=== PATIENT | male | born 1980 | race Caucasian/White ===

== ENCOUNTER 2021-10-01 10:51 | Inpatient (IN) | payer MEDICAID, SELFPAY ==
[2021-10-01 10:54] VITALS: BMI 24.4
[2021-10-01 10:56] VITALS: BP 127/81; PULSE 87; RESP 20; TEMP 36.4; O2SAT 96
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
[2021-10-01 14:00] VITALS: BP 130/89; PULSE 87; RESP 17; TEMP 36.7; O2SAT 98
[2021-10-01] MEDS: OLANZapine 5 mg ODT PO (15:52)
[2021-10-01 19:56] VITALS: BP 127/85; PULSE 82; RESP 16; O2SAT 97
[2021-10-02] MEDS: hyDROXYzine 25 mg Capsule 50 MG PO (03:49)
--- NOTE | 2021-10-02 03:57 | PC.NURSE ---
pt came to nurses desk requesting med for anxiety. when asked what was amping him up, pt stated being here . Vistaril 50mg po given.
[2021-10-02 06:00] VITALS: BP 129/91; PULSE 92; RESP 20; TEMP 36.6; O2SAT 98
[2021-10-02] MEDS: multivitamin therapeutic Tablet 1 TAB PO (08:27)
[2021-10-02] MEDS: thiamine 100 mg Tablet PO (08:27)
[2021-10-02] MEDS: haloperidol 5 mg Tablet PO ×2 (08:27→23:11)
[2021-10-02] MEDS: folic acid 1 mg Tablet PO (08:27)
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
[2021-10-02] MEDS: nicotine 21 mg Patch 1 PATCH TRANSDERMA (11:22)
[2021-10-02 14:00] VITALS: BP 129/86; PULSE 92; RESP 12; TEMP 36.7; O2SAT 97
[2021-10-02] MEDS: lithium carbonate 300 mg Capsule PO ×2 (14:02→18:01)
[2021-10-02] MEDS: ibuprofen 600 mg Tablet PO (14:32)
[2021-10-02 20:10] VITALS: BP 147/94; PULSE 101; RESP 16; O2SAT 97
[2021-10-02] MEDS: quetiapine 25 mg Tablet 50 MG PO ×2 (22:06→23:11)
--- NOTE | 2021-10-02 22:21 | PC.NURSE ---
NEW ORDER PT EXPRESSES TO THIS RN THAT HE CAN NOT SLEEP AND CAN NOT TAKE TRAZODONE OR ANY ANTIDEPRESSANTS DUE TO HAVING AN INCREASED HR AND FEELING FUNNY WHEN HE TAKES THEM. PT STATES HE USE TO TAKE AMBIEN FOR 9 YEARS AND THAT HELPED HIM SLEEP MORE THAN ANYTHING. THIS RN NOTIFIED DR. DR DARLING GAVE NEW ORDERS TO START SEROQUEL 50 MG PO AT HS PRN MAY REPEAT IF INEFFECTIVE. ORDERS PLACED IN [facility]. PT EDUCATION GIVEN ON SEROQUEL. PT VERBALIZES UNDERSTANDING. ALL QUESTIONS ANSWERED AND SUPPORT VOICED.
--- NOTE | 2021-10-02 23:15 | PC.NURSE ---
PRN MEDICATION PT REQUESTED PRN MEDICATION TO HELP HIM SLEEP. 50 MG OF SEROQUEL GIVEN ORDERED. PT CAME UP ABOUT 45 MINUTES LATER, STILL RESTLESS AND MORE ANXIOUS DUE TO NOT BEING ABLE TO SLEEP AND THE FIRST DOSE OF SEROQUEL NOT WORKING. PT WAS GIVEN AN ADDITIONAL DOSE OF 50 MG OF SEROQUEL ORDERED AND HALDOL 50 MG PO FOR INCREASED ANXIETY AND RESTLESSNESS. EDUCATED PT ON RELAXATION TECHNIQUES AND BREATHING TECHNIQUES TO ASSIST WITH REDUCING ANXIETY AND CALMING HIS MIND TO HELP INDUCE SLEEP. PT VERBALIZED UNDERSTANDING THEN WENT TO BED TO LAY DOWN AGAIN. INFORMED PT TO LET STAFF KNOW IF THE MEDICATION DOES NOT WORK. PT STATED HE WILL. ALL QUESTIONS ANSWERED AND SUPPORT VOICED.
[2021-10-03 05:42] VITALS: BP 109/74; PULSE 71; RESP 17; TEMP 36.6; O2SAT 98
[2021-10-03] MEDS: multivitamin therapeutic Tablet 1 TAB PO (08:21)
[2021-10-03] MEDS: thiamine 100 mg Tablet PO (08:21)
[2021-10-03] MEDS: folic acid 1 mg Tablet PO (08:22)
[2021-10-03] MEDS: lithium carbonate 300 mg Capsule PO ×2 (08:22→17:05)
[2021-10-03] MEDS: ibuprofen 600 mg Tablet PO (10:26)
[2021-10-03] MEDS: hyDROXYzine 25 mg Capsule 50 MG PO (13:39)
[2021-10-03 13:49] VITALS: BP 109/74; PULSE 71; RESP 17; TEMP 36.6; O2SAT 98
[2021-10-03] MEDS: nicotine 21 mg Patch 1 PATCH TRANSDERMA (14:44)
--- NOTE | 2021-10-03 19:00 | W.PM.NPUPNS ---
Subjective NPU Subjective: Patient is a 40y.o. white male with bipolar disorder I, and alcohol abuse. who had reported increased manic symptoms in the absence of his medications with suicidal ideation and worsening mood. He reports no side effects from the initiation of lithium and reports that he had been on higher dose of seroquel in the past. He reports that he continued to feel his thoughts racing and described having high energy but some sleep continuity disruption. He reports no feelings of hopelessnes. Reports continued history of cycling of his mood. Mental Status Exam MSE Comments: This is a casually dressed male, who appeared his stated age. His speech remained fast with increase push, Thought process was circumstantial. There was no evidence of flight of ideas. Thought content showed some evidence of overvalued ideas. There was not clear evidence of delusional thinking. Attention appeared fair. Insight was limited. Judgment is poor. Alert and oriented to person, place and time.? Mood was described as better , His affect remained intense with continued lability. Vitals/I&O/Wt Last Vital Signs Temp 98 F 10/03/21 13:49 Pulse 71 10/03/21 13:49 Resp 17 10/03/21 13:49 BP 109/74 10/03/21 13:49 Pulse Ox 98 10/03/21 13:49 A&P Assessment and plan (1) Bipolar I disorder with mixed features: Status: Acute (2) Alcohol abuse: Status: Acute Plan Plan This is a 40-year-old, , white male, with bipolar disorder, currently endorsing mixed symptoms, suggested for depression and isela, with a history of good success with [place]. 1. Patient will remain on [place] today 300mg bid 2. Increase seroquel to 200mg at night today 3. Cncourage individual/milieu/group therapy. Involuntary Hold Information 96 Hour Hold: 96 Hour Involuntary Admission: No Attestations NPU Medical Necessity Statement*: Patient requires continued hospitalization likely for 5-8 days to prevent further decompensation.? Coding Level of Care Code Established Pt Acute Business Continuity Planning Director for Maulik Pruett Patient Type Established History Problem Focused Exam Problem Focused Medical Decision Making Straight Forward Diagnoses Bipolar I disorder with mixed features F31.9 Alcohol abuse F10.10
[2021-10-03] MEDS: quetiapine 100 mg Tablet 200 MG PO (19:42)
[2021-10-03 19:54] VITALS: BP 124/86; PULSE 114; RESP 18; TEMP 36.7; O2SAT 96
[2021-10-04 06:00] VITALS: BP 125/91; PULSE 102; RESP 20; TEMP 36.5; O2SAT 95
[2021-10-04] MEDS: thiamine 100 mg Tablet PO (08:21)
[2021-10-04] MEDS: multivitamin therapeutic Tablet 1 TAB PO (08:22)
[2021-10-04] MEDS: acetaminophen 325 mg Tablet 650 MG PO (08:22)
[2021-10-04] MEDS: lithium carbonate 300 mg Capsule PO ×2 (08:22→17:26)
[2021-10-04] MEDS: folic acid 1 mg Tablet PO (08:22)
[2021-10-04] MEDS: nicotine 21 mg Patch 1 PATCH TRANSDERMA (08:47)
[2021-10-04 14:00] VITALS: BP 158/88; PULSE 98; RESP 18; O2SAT 96
--- NOTE | 2021-10-04 14:11 | P.NPUPN_ITS ---
Subjective NPU Subjective: Patient is a 40y.o. white male with bipolar disorder I, and alcohol abuse. who had reported increased manic symptoms in the absence of his medications with suicidal ideation and worsening mood.? He reports that he has been feeling less irritable and reports decrease in racing thoughts with some improvement in mood and reports of improved sleep with combination of seroquel. he reports that he feels motivated to return home. He reports that he has been feeling less aggressive. He reports depressed mood has been better. Mental Status Exam MSE Comments: This is a casually dressed male, who appeared his stated age. His speech was signficantly slower. Thought process was circumstantial. There was no evidence of flight of ideas. Thought content showed no clear evidence of delusional thinking or overvalued ideas. No evidence of flight of ideas or tangentiality. Attention appeared fair. Insight was limited. Judgment is poor. Alert and oriented to person, place and time.? Mood was described as better , His affect appeared mood congruent today. Vitals/I&O/Wt Last Vital Signs Temp 98.7 F 10/04/21 19:58 Pulse 98 10/04/21 19:58 Resp 18 10/04/21 19:58 BP 125/82 10/04/21 19:58 Pulse Ox 97 10/04/21 19:58 A&P Assessment and plan (1) Bipolar I disorder with mixed features: Status: Acute (2) Alcohol abuse: Status: Acute Plan This is a 40-year-old, , white male, with bipolar disorder, currently endorsing mixed symptoms, suggested for depression and isela, with a history of good success wi th Stuart. 1. Patient will remain on? [place] today 300mg bid 2. Increase seroquel to 300mg at night today 3.? Incourage individual/milieu/group therapy. Involuntary Hold Information 96 Hour Hold: 96 Hour Involuntary Admission: No Attestations NPU Medical Necessity Statement*: Patient requires continued hospitalization likely for 1-2 days to prevent further decompensation.?Will check lithium level tommorow. Coding Level of Care Code Established Pt Acute Route Sales Delivery Driver for Maulik Pruett Patient Type Established History Problem Focused Exam Problem Focused Medical Decision Making Straight Forward Diagnoses Bipolar I disorder with mixed features F31.9 Alcohol abuse F10.10
[2021-10-04] MEDS: calcium carbonate 500 mg Chew Tablet 1000 MG PO (17:26)
[2021-10-04 19:58] VITALS: BP 125/82; PULSE 98; RESP 18; TEMP 37.1; O2SAT 97
[2021-10-04] MEDS: quetiapine 300 mg Tablet PO (20:51)
[2021-10-05 06:00] VITALS: BP 119/85; PULSE 75; RESP 18; TEMP 36.6; O2SAT 97
[2021-10-05] MEDS: lithium carbonate 300 mg Capsule PO (09:07)
[2021-10-05] MEDS: thiamine 100 mg Tablet PO (09:07)
[2021-10-05] MEDS: nicotine 21 mg Patch 1 PATCH TRANSDERMA (09:07)
[2021-10-05] MEDS: multivitamin therapeutic Tablet 1 TAB PO (09:07)
[2021-10-05] MEDS: folic acid 1 mg Tablet PO (09:08)
--- NOTE | 2021-10-05 14:11 | W.PM.NPUDCS ---
Diagnoses at Discharge Discharge Diagnosis (1) Bipolar I disorder with mixed features: Status: Acute (2) Alcohol abuse: Status: Acute Reason for Visit Reason for Visit: suicidal ideation Brief History: [address] [place] [address] History & Physical Report Signed Patient: Noam Amador MR#: [id number] : 1980 Age/Sex: 40 / M ADM Date: 10/01/21 Loc: NONDESTRUCTIVE TESTER? Room/Bed: 155-2 Encounter Date: 10/02/[address]: Vaibhav Silva MD Report Number: [id number] Providers/Chief Complaint Admitting Physicia n:?? Chapis Garcia ? Chief Complaint:?? suicidal ideation HPI NPU History of Present Illness Noam Amador is a 40 year old male diagnosed withbipolar disorder I in the past. He reports that two weeks ago he got and moved in with his new ; he owns a house but her house is in [place], which is more convenient, so he moved into her house. He reports that he brought his cats. He reports he quit his job and started a brand new job. He stated it is not an ?old man job? and he is turning 41 soon, and as he has not been physically active this new job has been more grueling and he is very sore right now. He endorses that his whole life has changed. He reports that his needs medication too and has her own issues and he thinks that she needs to be in therapy. He reports that his goal had been to move in by February and she got upset and said they needed to be together. So he finally said ok. He reports that he is used to a ?decompression period? where he would go to his house, not answer his phone, and turn on the TV and breathe. But his would want to go do ?this and that? every day, and would just fill up the weekends with things to do, when he would just like to have a weekend with nothing to do. He is also now a step dad to three children. He reports he has a hard time sleeping. So the transition has been difficult. Because of this he states that ?I broke.? He reports that when he is overwhelmed he ?blacks out? or is not ?taking in memories.? He reports that they were at a [employer] and he had one beer, but he was not drunk. Then it was all a blur and he was getting arrested. The report says that they had to talk him down and he was saying he wanted to kill himself, and a gun was involved. He reports that he pretty much woke up in the back of the gyroscopic instrument tester car, thinking ?who did I hurt,? but the gyroscopic instrument tester told him he didn?t hurt anyone. He at first reported that he does not get periods of depression, and that he always has the highs, in which he can be happy or irritable. He reports periods of not sleeping at all. He reports averaging one and a half to two hours of sleep a night over three weeks. He thinks the trigger was getting three weeks ago. But he did report that he gets really stressed and then will crash and have a period of not functioning. He reports that he disappears when he has ?a drop? and just isolates. And then he will just crash and have periods of what he described as ?micro-sleeping? where he will sleep off and on over a couple days. He reports that if he has several days of being awake he will hear music that is not there, or hear sounds like someone is outside when no one is there. He reports that his mood was more stable three months ago. He reports that he has problems with anxiety and has panic attacks, but they are not as frequent as they were years ago. He used to have them every day but now has them every few months. He reports that he had one recently when he was moving out of the house he had been in for years. He reports that he used to take Klonopin but just stopped taking it. He reports that he has tried CBT. PSYCHIATRIC HISTORY: He reports that he has had seven psychiatric hospitalizations, with the most recent being last year, at [facility]. He reports that he got the point where he ?broke again.? He denies being suicidal at that point. He denies self-injurious behavior. He denies being involuntarily hospitalized. He reports the first psychiatric hospitalization was at 18 years old. He reports that he went to [facility] for a long time, but that ?they don?t listen.? He reports his last psychiatric visit was several months ago.? ?He reports that he was taking [place], morning and night, and Ambien or something else to help with sleep. He reports that they tried Seroquel and it did not work. He reports that he had a sleep study and he did not have a circadian rhythm. He reports taking Zyprexa and something else and that did not help. He reports taking Lamictal but that it stopped working. He reports that he was on Depakote when he was a kid, and endorsed that they thought he had bipolar when he was younger. He reports that he was on Abilify and there were sexual side effects. He reports that he was on Risperdal and thinks there was some reason he could not take that. As far as he recalls, he denies Tegretol, Geodon, Latuda. He endorses that about six months ago, he was seeing a psychiatrist fairly regularly and would get [place] levels regularly. SUBSTANCE ABUSE HISTORY: He reports that he drinks alcohol occasionally, mostly only on the weekends. He denies smoking cigarettes but endorses vaping, and he denies any other drug use. He denies marijuana, opiates, cocaine, or any other illicit drug use. He denies ever being in a drug rehabilitation. He denies ever having a DUI. FAMILY HISTORY: He denies a family history of mental health issues. DEVELOPMENTAL AND PSYCHOSOCIAL HISTORY: He reports that he was born in [facility], [place] [facility]. He was 10 to 12 when he moved to [place], [place]. Then he moved to [place], back to [facility] and then here. He reports that he was raised by both parents until his parents split up when he was ?18 years old. He reports that he has one sibling, a younger brother. And he has three step- siblings. He reports that he hated school but he was good at it. He reports that did have some special eduction because he was not getting work done, but that when he applied himself he ?blew through it? and that he is actually a really smart person. He reports that he was diagnosed with ADHD but was not on medication, as they tried medication for about a week and he did not like it. He reports that he graduated high school and went to college at the [employer], which has an online program for [employer] and web design, which he completed, and he graduated with an Associates degree. He reports that he works at [employer] and just got this job back Saturday of last week, and wants to get out of here because of that. He reports that he has been twice, previously thirteen years and recently for two months. He reports that he got in 2019. He denies having biological children. He reports that he now lives with his new and her three kids. 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 He said he quit his old job, which he had for three and a half years, because they were working him nineteen days straight which was not good for his mental health. He reports that before that job he had a job for four years. LEGAL HISTORY: He endorses some legal trouble when he was around 19 years old, for drinking and fighting. He reports that he was in intermediate for over six months. MEDICAL HISTORY: He denies any medical concerns. He reports he had an appendectomy. He reports environmental allergies. He reports that Vicodin makes him itch, Trazodone makes him sick, and some other medications that he does not tolerate well. Allergies: vicodin, vraylar Hospital Course Hospital Course During the hospitalization, patient had routine laboratory studies which were within normal limits except for few outliers. Additionally there was a general medical evaluation which was also within normal limits and revealed no new acute processes. Discharge Summary: At the time of discharge, lethality was denied and psychosis was resolving. Mood and anxiety were well managed. Patient endorsed a plan to avoid all drugs of abuse and follow-up with the aftercare recommendations of the treatment team. Patient was evaluated and deemed to be absent credible lethality, and had achieved the maximum benefit from an inpatient hospitalization, so was discharged. Patient was discharged on [place] and seroquel without any complications. Involuntary Hold Information 96 Hour Hold: 96 Hour Involuntary Admission: No Mental Status Exam MSE Comments: This is a casually dressed male, who appeared his stated age. His speech was signficantly slower.? Thought process was linear and logical and goal directed. There was no evidence of flight of ideas. Thought content showed no clear evidence of delusional thinking or overvalued ideas.? No evidence of flight of ideas or tangentiality. ? ?Attention appeared fair. Insight was limited. Judgment is better. Alert and oriented to person, place and time.? Mood was described as better , His affect appeared mood congruent today. Discharge Data Vitals: Last Vital Signs Temp 98 F 10/05/21 15:07 Pulse 75 10/05/21 15:07 Resp 18 10/05/21 15:07 BP 119/85 10/05/21 15:07 Pulse Ox 97 10/05/21 15:07 Discharge Plan Discharge Patient Disposition: Home Condition: Stable Prescriptions: New lithium carbonate 300 mg Capsule 300 mg PO BID 30 Days Qty: 60 0RF quetiapine 300 mg Tablet 300 mg PO BEDTIME Qty: 30 1RF Seroquel 100 mg tablet 100 mg PO DAILY Qty: 14 1RF Discharge Orders: Discharge Order (Routine); Ordered 10/05/21 Ordered By: Vaibhav Silva Referrals: [facility] [Other] - 12/15/21 1:00 pm (Telehealth appointment with Psychiatrist Brian Hurst. You are on a cancelation list to try to get sooner appointment. ) [facility] [Other] - 11/01/21 11:00 am (Appointment with therapist Sandra Smith. You are on a cancelation list for sooner apt. ) [facility] - Dr. Monk [Other] - 10/06/21 2:45 pm (Follow up with Dr. Monk) [facility] [Other] Discharge Diet: Usual diet Discharge Activity: Resume usual activity Patient Instructions: Alcohol Abuse, Bipolar Disorder (DC), Opioid Safety Activity Restrictions/Additional Instructions: Patient needs BMP, urinalysis and trough lithium level in 1 week. Discharge Attestations NPU Time Spent in Discharge Care*: less than 30 min Coding Level of Care Code Established Pt Acute Chg FW DC note Patient Type Established History Problem Focused Exam Problem Focused Medical Decision Making Straight Forward Diagnoses Bipolar I disorder with mixed features F31.9 Alcohol abuse F10.10
[2021-10-05 15:07] VITALS: BP 119/85; PULSE 75; RESP 18; TEMP 36.6; O2SAT 97
== END 2021-10-05 16:00 | disposition home or self-care (01) | DRG 885 ==
PROVIDERS: Admitting Provider Psychiatry & Neurology Psychiatry; Visit Provider Psychiatry & Neurology Psychiatry
DX: F31.60 Bipolar disorder, current episode mixed, unspecified (principal); R45.851 Suicidal ideations; F10.10 Alcohol abuse, uncomplicated; F17.290 Nicotine dependence, other tobacco product, uncomplicated; Z63.0 Problems in relationship with spouse or partner
CPT/HCPCS: 97150; 97165